=== PATIENT | female | born 2000 | race Two or more races ===

== ENCOUNTER 2019-10-04 06:56 | Emergency (ER) | payer OTHER, MEDICAID ==
[~2019-10-04] VITALS: Ht 162.6 cm; Wt 66.2 kg
[2019-10-04 07:17] VITALS: BP 129/64
[2019-10-04] MEDS ORDERED: ACETAMINOPHEN 500 MG TAB PO ONE (08:15)
== END 2019-10-04 08:35 | disposition home or self-care (01) ==
LOC: EDBD 06:56 → ER 06:56
DX: S81.011A Laceration without foreign body, right knee, initial encounter (principal); S00.81XA Abrasion of other part of head, initial encounter; V43.52XA Car driver injured in collision with other type car in traffic accident, initial encounter; Y93.89 Activity, other specified; Y92.488 Other paved roadways as the place of occurrence of the external cause; Y99.8 Other external cause status
CPT/HCPCS: 12001; 99283; J2001